=== PATIENT | male | born 1955 | race American Indian/Alaskan Native ===

== ENCOUNTER 2021-07-07 18:24 | Emergency (ER) | payer MEDICARE ==
[2021-07-07] MEDS ORDERED: SODIUM CHLORIDE 0.9% 1000 ML 1,000 ML IV ONE (19:43)
[2021-07-07] MEDS ORDERED: INSULIN REGULAR, HUMAN 100 UNITS/1 ML SUB-Q ONE (19:43)
--- NOTE | 2021-07-07 19:44 | Emergency Department Report ---
ED General Adult HPI - General Chief complaint: Hyperglycemia Stated complaint: HYPERGLYCEMIA Time Seen by Provider: 07/07/21 19:43 Source: EMS Mode of arrival: Stretcher Limitations: No Limitations - History of Present Illness Initial comments: Patient was brought in by EMS secondary to elevated blood sugar. Patient has had a chronic neuropathy. He has had blood sugar elevated at 400. 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 This is again chronic. He has no recent change. He does state that his blood sugar has been elevated lately. He has no fevers or chills but there is no cough congestion but has no runny nose sore throat. He denies headache. He has no blurry vision or double vision. He states that he does watch what he eats, but not all the time. He admits to eating carbohydrates. - Related Data Home Medications Medication Instructions Recorded Confirmed Last Taken Valsartan [Diovan] 80 mg PO DAILY 02/02/13 11/27/13 11/21/13 Aspirin [Aspirin BABY CHEW TAB] 81 mg PO ONCE 11/27/13 11/27/13 11/26/13 metFORMIN [Glucophage] 500 mg PO BID 11/27/13 11/27/13 11/27/13 04:00 Previous Rx's Medication Instructions Recorded Last Taken Type Insulin Aspart Protam & Aspart 70 unit SQ BID #10 ml 11/28/13 Unknown Rx [NovoLOG Mix 70-30 Flexpen] Allergies Allergy/AdvReac Type Severity Reaction Status Date / Time shellfish derived Allergy Hives Verified 07/07/21 18:43 ED Review of Systems ROS: Stated complaint: HYPERGLYCEMIA Other details as noted in HPI Comment: All other systems reviewed and negative Constitutional: denies: fever Eyes: denies: vision change ENT: denies: throat pain Respiratory: denies: cough Cardiovascular: denies: chest pain Endocrine: denies: unexplained weight loss Gastrointestinal: denies: abdominal pain Genitourinary: denies: dysuria Musculoskeletal: denies: back pain Skin: denies: rash Neurological: denies: headache Hematological/Lymphatic: denies: easy bruising ED Past Medical Hx - Past Medical History Hx Hypertension: Yes Hx Heart Attack/AMI: No Hx Congestive Heart Failure: No Hx Diabetes: Yes Hx Deep Vein Thrombosis: No Hx Liver Disease: No Hx Sickle Cell Disease: No Hx Arthritis: Yes Hx Asthma: No Hx COPD: No Hx HIV: No Additional medical history: high cholest, hayfever - Surgical History Hx Coronary Stent: No Hx Pacemaker: No Hx Internal Defibrillator: No Additional Surgical History: hand surgery hernia knee surg - Family History Family history: diabetes - Social History Smoking Status: Former Smoker - Medications Home Medications: Home Medications Medication Instructions Recorded Confirmed Last Taken Type Valsartan [Diovan] 80 mg PO DAILY 02/02/13 11/27/13 11/21/13 History Aspirin [Aspirin BABY CHEW TAB] 81 mg PO ONCE 11/27/13 11/27/13 11/26/13 History metFORMIN [Glucophage] 500 mg PO BID 11/27/13 11/27/13 11/27/13 04:00 History Insulin Aspart Protam & Aspart 70 unit SQ BID #10 ml 11/28/13 Unknown Rx [NovoLOG Mix 70-30 Flexpen] ED Physical Exam - General Limitations: No Limitations, Other (Pulse ox noted and normal) General appearance: alert, in no apparent distress - Head Head exam: Present: atraumatic, normocephalic - Eye Eye exam: Present: normal appearance, EOMI - ENT ENT exam: Present: mucous membranes dry, normal external ear exam - Neck Neck exam: Present: normal inspection. Absent: meningismus - Respiratory Respiratory exam: Present: normal lung sounds bilaterally. Absent: respiratory distress - Cardiovascular Cardiovascular Exam: Present: regular rate, normal rhythm - GI/Abdominal GI/Abdominal exam: Present: soft. Absent: distended - Extremities Exam Extremities exam: Present: normal capillary refill. Absent: pedal edema - Back Exam Back exam: Absent: CVA tenderness (R), CVA tenderness (L) - Neurological Exam Neurological exam: Present: alert, oriented X3, CN II-XII intact, other (Paresthesias to both feet) - Psychiatric Psychiatric exam: Present: normal affect, normal mood - Skin Skin exam: Present: warm, dry ED Course Vital Signs 07/07/21 07/07/21 18:40 20:51 Temperature 99 F 98 F Pulse Rate 99 H 82 Respiratory 16 18 Rate Blood Pressure 150/90 157/88 [Left] O2 Sat by Pulse 98 100 Oximetry - Reevaluation(s) Reevaluation #1: 07/07/21 19:44 EMS was met upon arrival. Labs and EKG were ordered. Old records reviewed Reevaluation #2: 07/07/21 21:09 Labs are noted and the patient was discharged ED Medical Decision Making - Lab Data Result diagrams: 07/07/21 20:06 07/07/21 20:06 - Medical Decision Making Patient presents with paresthesias to both feet. He was found to be hyperglycemic. He was not in DKA. Patient does not have any obvious infectious or metabolic derangement. Patient be treated symptomatically for follow-up. He does not have any focal neurologic findings suggestive of acute stroke. This is chronic in nature Critical Care Time: No Critical care attestation.: If time is entered above; I have spent that time in minutes in the direct care of this critically ill patient, excluding procedure time. ED Disposition Clinical Impression: Diabetic neuropathy, Chronic foot pain Disposition: 01 HOME / SELF CARE / HOMELESS Is pt being admited?: No Condition: Stable Instructions: Diabetes Mellitus Type 2 in Adults (ED), Diabetes Mellitus and Foot Care, Neuropathic Pain Additional Instructions: Continue home medication. Drink any water. Return for problems. Follow-up with your regular doctor for recheck and further management. Referrals: PRIMARY CAREMD [Referring] - 3-5 Days STAS MARINA MD [Staff Physician] - 3-5 Days
[2021-07-07 20:34] LABS: Hematocrit 37.7 % (35.5-45.6); Hemoglobin 12.7 gm/dl (11.8-15.2); Mean Corpuscular HGB Conc 34 % (32-34); Mean Corpuscular Volume 91 fl (84-94); Platelet Count 245 K/mm3 (140-440); Red Blood Count 4.15 M/mm3 (3.65-5.03); Red Cell Distribution Width 13.9 % (13.2-15.2)
[2021-07-07 20:41] LABS: BUN/Creatinine Ratio 13; Blood Urea Nitrogen 15 mg/dL (9-20); Calcium 9.1 mg/dL (8.4-10.2); Hemolysis Index 26
[2021-07-07 22:26] VITALS: BP 157/90
== END 2021-07-07 22:24 | disposition home or self-care (01) ==
LOC: ED 18:24
DX: G89.29 Other chronic pain (principal); E11.40 Type 2 diabetes mellitus with diabetic neuropathy, unspecified; M79.673 Pain in unspecified foot; M19.90 Unspecified osteoarthritis, unspecified site; E78.00 Pure hypercholesterolemia, unspecified; J30.1 Allergic rhinitis due to pollen; Z98.890 Other specified postprocedural states; Z87.891 Personal history of nicotine dependence; Z91.013 Allergy to seafood
CPT/HCPCS: 36415; 80048; 82962; 85027; 96360; 96372; 99284; J7030; Q0162; Q9967; J1815

== ENCOUNTER 2021-09-24 21:16 | Emergency (ER) | payer MEDICARE ==
[2021-09-24] MEDS ORDERED: KETOROLAC 30 MG/1 ML INJ IV ONE (21:45)
--- NOTE | 2021-09-24 21:45 | Emergency Department Report ---
ED Abdominal Pain HPI - General Stated Complaint: LOWER ABD PAIN Time Seen by Provider: 09/24/21 21:38 Source: patient Limitations: No Limitations - History of Present Illness Initial Comments: Patient is a 65-year-old male brought in by EMS with complaint of abdominal pain for the past several weeks. He complains of pain in his epigastric region that is sharp in nature which radiates down the midline of his abdomen into his groin. He denies any nausea vomiting. Reports decreased bowel movements along with increased frequency of urination. He endorses concerns for possible prostate issues and states he had a family member of prostate cancer. - Related Data Home Medications Medication Instructions Recorded Confirmed Last Taken Valsartan [Diovan] 80 mg PO DAILY 02/02/13 11/27/13 11/21/13 Aspirin [Aspirin BABY CHEW TAB] 81 mg PO ONCE 11/27/13 11/27/13 11/26/13 Previous Rx's Medication Instructions Recorded Last Taken Type Insulin Aspart Protam & Aspart 70 unit SQ BID #10 ml 11/28/13 Unknown Rx [NovoLOG Mix 70-30 Flexpen] metFORMIN [Glucophage] 500 mg PO BID #60 tab 07/07/21 Unknown Rx Allergies Allergy/AdvReac Type Severity Reaction Status Date / Time shellfish derived Allergy Hives Verified 09/24/21 22:00 ED Review of Systems ROS: Stated complaint: LOWER ABD PAIN Other details as noted in HPI Comment: All other systems reviewed and negative Constitutional: denies: chills, fever Respiratory: denies: cough, shortness of breath, wheezing Cardiovascular: denies: chest pain, palpitations Gastrointestinal: abdominal pain. denies: nausea, vomiting Genitourinary: frequency. denies: dysuria, hematuria, testicular pain, testicular mass Skin: denies: rash, lesions Neurological: denies: headache, weakness, paresthesias Psychiatric: denies: anxiety, depression ED Past Medical Hx - Past Medical History Hx Hypertension: Yes Hx Heart Attack/AMI: No Hx Congestive Heart Failure: No Hx Diabetes: Yes Hx Deep Vein Thrombosis: No Hx Liver Disease: No Hx Sickle Cell Disease: No Hx Arthritis: Yes Hx Asthma: No Hx COPD: No Hx HIV: No Additional medical history: high cholest, hayfever - Surgical History Hx Coronary Stent: No Hx Pacemaker: No Hx Internal Defibrillator: No Additional Surgical History: hand surgery hernia knee surg - Social History Smoking Status: Former Smoker - Medications Home Medications: Home Medications Medication Instructions Recorded Confirmed Last Taken Type Valsartan [Diovan] 80 mg PO DAILY 02/02/13 11/27/13 11/21/13 History Aspirin [Aspirin BABY CHEW TAB] 81 mg PO ONCE 11/27/13 11/27/13 11/26/13 History Insulin Aspart Protam & Aspart 70 unit SQ BID #10 ml 11/28/13 Unknown Rx [NovoLOG Mix 70-30 Flexpen] metFORMIN [Glucophage] 500 mg PO BID #60 tab 07/07/21 Unknown Rx ED Physical Exam - General Limitations: No Limitations General appearance: alert, in no apparent distress - Head Head exam: Present: atraumatic, normocephalic - Neck Neck exam: Present: normal inspection - Respiratory Respiratory exam: Present: normal lung sounds bilaterally. Absent: respiratory distress - Cardiovascular Cardiovascular Exam: Present: regular rate, normal rhythm. Absent: systolic murmur, diastolic murmur, rubs, gallop - GI/Abdominal GI/Abdominal exam: Present: soft, tenderness (Abdomen diffusely tender (mild)). Absent: distended, guarding, rebound - Rectal Rectal exam: Present: deferred - Neurological Exam Neurological exam: Present: alert, oriented X3, CN II-XII intact - Psychiatric Psychiatric exam: Present: normal affect, normal mood - Skin Skin exam: Present: warm, dry, intact, normal color ED Course Vital Signs 09/24/21 09/24/21 09/24/21 21:41 21:45 21:46 Temperature 98.9 F Pulse Rate 111 H Respiratory 18 Rate Blood Pressure 175/101 Blood Pressure 149/87 [Left] O2 Sat by Pulse 99 96 99 Oximetry 09/24/21 09/24/21 09/24/21 21:50 22:01 22:15 Temperature Pulse Rate Respiratory Rate Blood Pressure 166/92 166/92 Blood Pressure [Left] O2 Sat by Pulse 99 96 97 Oximetry 09/24/21 09/24/21 09/25/21 22:31 22:45 01:42 Temperature Pulse Rate 87 Respiratory 18 Rate Blood Pressure 166/92 166/92 Blood Pressure 140/88 [Left] O2 Sat by Pulse 97 97 98 Oximetry 09/25/21 03:58 Temperature Pulse Rate Respiratory Rate Blood Pressure Blood Pressure [Left] O2 Sat by Pulse 99 Oximetry ED Medical Decision Making - Lab Data Result diagrams: 09/24/21 21:53 09/24/21 21:53 - Medical Decision Making Patient presenting with complaint of nausea, vomiting and abdominal pain. Laboratory evaluation reveals hyperglycemia with serum glucose greater than 700. Patient given IV fluids and insulin. CT abdomen shows no acute pathology. Serum glucose on final assessment 250. Patient stable for discharge with return precautions. Critical care attestation.: If time is entered above; I have spent that time in minutes in the direct care of this critically ill patient, excluding procedure time. ED Disposition Clinical Impression: Abdominal pain, epigastric, Lower abdominal pain, Nausea and vomiting, Hyperglycemia due to diabetes mellitus Disposition: 01 HOME / SELF CARE / HOMELESS Is pt being admited?: No Does the pt Need Aspirin: No Condition: Stable Instructions: Diabetes Mellitus Type 2 in Adults (ED), Nausea and Vomiting, Adult, [id number], Abdominal Pain, Adult, Hyperglycemia, [id number] Time of Disposition: 04:54
[2021-09-24] MEDS ORDERED: MORPHINE 4 MG/1 ML INJ IV ONE (21:47)
[2021-09-24 22:08] LABS: Basophils % (Auto) 0.8 % (0.0-1.8); Eosinophils # (Auto) 0.1 K/mm3 (0.0-0.4); Eosinophils % (Auto) 2.2 % (0.0-4.3); Hematocrit 42.1 % (35.5-45.6); Hemoglobin 13.6 gm/dl (11.8-15.2); Lymphocytes # (Auto) 2.1 K/mm3 (1.2-5.4); Lymphocytes % (Auto) 34.9 % (13.4-35.0); Mean Corpuscular HGB Conc 32 % (32-34); Mean Corpuscular Volume 93 fl (84-94); Monocytes # (Auto) 0.7 K/mm3 (0.0-0.8); Monocytes % (Auto) 11.5 % (0.0-7.3); Platelet Count 168 K/mm3 (140-440); Red Blood Count 4.54 M/mm3 (3.65-5.03); Red Cell Distribution Width 13.5 % (13.2-15.2)
[2021-09-24 22:24] LABS: Alanine Aminotransferase 18 units/L (7-56); Albumin 4.1 g/dL (3.9-5); BUN/Creatinine Ratio 16; Blood Urea Nitrogen 27 mg/dL (9-20); Calcium 8.9 mg/dL (8.4-10.2); Hemolysis Index 11
[2021-09-24 22:57] LABS: Bilirubin,Direct < 0.2 mg/dL (0-0.2)
[2021-09-24 23:07] LABS: Bacteria,Urine 2+ /HPF (Negative); Bilirubin,Urine NEG (Negative); Blood,Urine MOD (Negative); Color,Urine Colorless (Yellow); Mucus,Urine FEW /HPF; Protein,Urine <15 mg/dL mg/dL (Negative); Urobilinogen,Urine < 2.0 mg/dL (<2.0)
--- NOTE | 2021-09-24 23:34 | Cat Scan Report ---
CT ABDOMEN AND PELVIS WITH CONTRAST INDICATION / CLINICAL INFORMATION: Abdominal Pain. TECHNIQUE: Axial CT images were obtained through the abdomen and pelvis after 80 cc of Omnipaque [address] scans at this location are performed using CT dose reduction for ALARA by means of automated exposure control. COMPARISON: None available. FINDINGS: LOWER CHEST: No significant abnormality. AORTA / ARTERIES: No significant abnormality. IVC / VEINS: No significant abnormality. LYMPH NODES: No significant adenopathy. COLON: No significant abnormality. APPENDIX: No significant abnormality. STOMACH / SMALL BOWEL: No significant abnormality. PERITONEUM: No free fluid. No free air. No fluid collection. LIVER: No significant abnormality. GALLBLADDER: No significant abnormality. BILE DUCTS: No significant abnormality. PANCREAS: No significant abnormality. SPLEEN: No significant abnormality. ADRENALS: No significant abnormality. RIGHT KIDNEY / URETER: No significant abnormality. LEFT KIDNEY / URETER: No significant abnormality. URINARY BLADDER: No significant abnormality. REPRODUCTIVE ORGANS: No significant abnormality. SKELETAL SYSTEM: Scattered degeneration ADDITIONAL FINDINGS: None. IMPRESSION: 1. No CT findings to explain symptomatology. Signer Name: Edy Kaminski DO Signed: 09/24/2021 11:30 PM Workstation Name: [id number]
[2021-09-25] MEDS ORDERED: INSULIN REGULAR, HUMAN 100 UNITS/1 ML IV ONE ×2 (00:09→03:24)
[2021-09-25] MEDS ORDERED: SODIUM CHLORIDE 0.9% 1000 ML 1,000 ML ONE ×2 (00:23→00:25)
[2021-09-25] MEDS ORDERED: SODIUM CHLORIDE 0.9% 1000 ML 1,000 ML IV ONE ×2 (00:34→03:24)
[2021-09-25] MEDS ORDERED: ONDANSETRON 4 MG/2 ML INJ IV ONE (01:38)
[2021-09-25 01:45] VITALS: BP 140/88
== END 2021-09-25 05:20 | disposition home or self-care (01) ==
LOC: ED 21:16
DX: R10.13 Epigastric pain (principal); R10.30 Lower abdominal pain, unspecified; R11.2 Nausea with vomiting, unspecified; E11.65 Type 2 diabetes mellitus with hyperglycemia; I10 Essential (primary) hypertension; Z91.013 Allergy to seafood
CPT/HCPCS: 36415; 74177; 80048; 80076; 81001; 82962; 83690; 85025; 87086; 96361; 96374; 96375; 96376; 99284; J2270; J2405; J7030; Q9967; J1815